=== PATIENT | male | born 1965 | race Caucasian/White ===

== ENCOUNTER 2017-04-21 17:34 | Emergency (ER) | payer OTHER ==
[2017-04-21 17:50] VITALS: BP 106/66
[2017-04-21] MEDS ORDERED: Doxycycline (NF) 100 MG TAB PO ONE (18:04)
--- NOTE | 2017-04-21 18:07 | UC ---
Skin Complaint HPI - HPI Summary HPI Summary: insect possible tick bit inside of right ankle noticed during scratching 2 days ago---now has a purple bred area about 25cent size and is concerned it could have been a tick - History of Current Complaint Chief Complaint: UCSkin Time Seen by Provider: 04/21/17 17:54 Stated Complaint: TICK BITE,RASH Hx Obtained From: Patient Onset/Duration: Sudden Onset, Lasting Days - 3, Still Present Skin Exposure Onset/Duration: Days Ago - 3 Timing: Constant Onset Severity: Mild Current Severity: None Location: Discrete Character: Redness - /bruised Aggravating: Nothing Alleviating: Nothing Associated Signs & Symptoms: Positive: Negative Related History: Insect Bite/Sting - Allergy/Home Medications Allergies/Adverse Reactions: Allergies Allergy/AdvReac Type Severity Reaction Status Date / Time Latex Allergy Intermediate Hives Verified 04/21/17 17:50 peanuts Allergy Anaphylatic Uncoded 06/26/13 10:55 Shock Home Medications: Home Medications NK [No Home Medications Reported] 04/21/17 [History Confirmed 04/21/17] Review of Systems Constitutional: Negative Skin: Bruising - ? rash medical right ankle Eyes: Negative ENT: Negative Respiratory: Negative Cardiovascular: Negative Gastrointestinal: Negative Genitourinary: Negative Motor: Negative Neurovascular: Negative Musculoskeletal: Negative Neurological: Negative Psychological: Negative All Other Systems Reviewed And Are Negative: Yes PMH/Surg Hx/FS Hx/Imm Hx Previously Healthy: Yes - Surgical History Surgical History: Yes Surgery Procedure, Year, and Place: Tonsilectomy. Repair of Deviated Septum. EYE SURGERY - REMOVE CORNEA AND CLEAN OUT FROM INFECTION - Family History Known Family History: Positive: Unknown - Social History Occupation: Employed Full-time Lives: With Family Alcohol Use: None Substance Use Type: None Smoking Status (MU): Never Smoked Tobacco Have You Smoked in the Last Year: No - Immunization History Hx Tetanus, Diphtheria Vaccination: Yes Vaccination Up to Date: Yes Physical Exam Triage Information Reviewed: Yes Appearance: Well-Appearing, No Pain Distress, Well-Nourished Vital Signs: Initial Vital Signs Temp 98.2 F 04/21/17 17:46 Pulse 47 04/21/17 17:46 Resp 16 04/21/17 17:46 BP 106/66 04/21/17 17:46 Pulse Ox 100 04/21/17 17:46 Vital Signs Reviewed: Yes Eye Exam: Normal Eyes: Positive: Conjunctiva Clear ENT Exam: Normal ENT: Positive: Normal ENT inspection, Hearing grossly normal. Negative: Nasal congestion, Nasal drainage, Trismus, Muffled/hoarse voice Dental Exam: Normal Neck exam: Normal Neck: Positive: Supple, Nontender Respiratory Exam: Normal Respiratory: Positive: Normal breath sounds, No respiratory distress Cardiovascular Exam: Normal Cardiovascular: Positive: RRR, Pulses Normal, Brisk Capillary Refill Musculoskeletal Exam: Normal Neurological Exam: Normal Neurological: Positive: Alert, Muscle Tone Normal Psychological Exam: Normal Skin: Positive: Other - ?bruise/erythema medical right ankle Course/Dx - Course Course Of Treatment: Doxycycline times 1 dose, follow with pcp, observe for s/s of Lyme - Differential Diagnoses - Skin Complaint Differential Diagnoses: Cellulitis, Local Allergic Reaction, Tick Born Illness, Other - contuision - Diagnoses Provider Diagnoses: Lyme PEP Discharge - Discharge Plan Condition: Stable Disposition: HOME Patient Education Materials: Tick Bite (ED) Referrals: Stephanie Kamara MD [Primary Care Provider] - If Needed
[2017-04-21] MEDS ORDERED: DOXYcycline CAP(*) 100 MG PO ONE (18:12)
== END 2017-04-21 18:20 | disposition home or self-care (01) ==
LOC: UCEAST 17:34
DX: A69.20 Lyme disease, unspecified (principal)
CPT/HCPCS: 99212; A9270-GY; G0463